=== PATIENT | male | born 1995 | race Caucasian/White ===

== ENCOUNTER 2017-01-15 21:46 | Emergency (ER) | payer BC ==
--- NOTE | 2017-01-15 22:49 | ERNOTE ---
Chest Pain/Cardiac HPI Date of Service: 01/15/17 Chief Complaint: Chest Pain Time Seen by Provider: 01/15/17 22:27 Source: patient Immunizations: IMMUNIZATION HX Immunizations Up to Date No History of Influenza Vaccine No Hx Pneumococcal Vaccination No Allergies/Adverse Reactions: Allergies Penicillins Allergy (Verified 01/15/17 21:58) Home Medications: HOME MEDICATIONS NK [No Home Medication] 01/15/17 [Last Taken Unknown] Narrative: This is a 21-year-old male who has a history of anxiety attacks who states that around 8:30 this evening he was riding with his fiance when he developed a tightness substernally. He then began to experience tingling into his neck on both sides and has sensation of tingling which progressed from his shoulders down to his toes. Shortly thereafter the tingling went away except around his lips, the fingertips and the toe tips. These are similar symptoms to what the patient has had in the past. He says he has been under a great deal of emotional stress, but he does not remember ruminating about any specific problems when this happened. He did not have any nausea he did not have any diaphoresis but he did complain of subjective shortness of breath, dyspnea. The patient does not have a history of high blood pressure, diabetes, high cholesterol. He does use tobacco products in the form of chewing tobacco. No family history of early cardiac disease. The patient says that his symptoms are completely resolved now. He does not have a family doctor. Timing: gone now Severity/Quality: moderate, pressure Location: substernal Chest Pain Radiation: no radiation Activities at Onset: emotional stress Modifying Factors - Improves: Present: nothing Modifying Factors - Worsens: Present: nothing Nitro Today/Relief: no nitro taken today Aspirin Treatment Today: no aspirin today Associated Symptoms: Present: shortness of breath, other - tingling to fingers and toes and perioral Prior Chest Pain/Cardiac Workup: Reports: no prior cardiac workup Prior Treatment: Denies: treated by physician, recently hospitalized, currently on antibiotics Review of Systems - Review of Systems Constitutional: Present: See HPI EYE: Present: no symptoms reported ENT: Present: no symptoms reported Respiratory: Present: shortness of breath. Absent: cough, orthopnea, wheezing, stridor Cardiology: Present: chest pain. Absent: palpitations, edema, claudication Gastrointestinal/Abdominal: Present: no symptoms reported. Absent: nausea, vomiting Genitourinary: Present: no symptoms reported Musculoskeletal: Present: no symptoms reported Skin: Present: no symptoms reported Neurological: Present: tingling, other - tingling to fingers toes and perioral Endocrine: Present: no symptoms reported Hematologic/Lymphatic: Present: no symptoms reported Psych: Present: anxiety All Other Systems: All systems neg except as marked - Patient's Past Medical History Patient History - Medical: Anxiety, GERD Patient History - Cardiac/Respiratory: Arrhythmias, Other Patient History - Cancer: No Hx of Cancer Patient History - Surgical Procedures: No surgical history Patient History - Other: None - Social History Living Situations: home Abuse History: No History of abuse Psych History: Hx of Anxiety Smoking Status: Never smoker Do you dip or chew tobacco: Yes Alcohol Use: rarely Drug Use: none - Immunizations Immunizations Up to Date: No Hx Pneumococcal Vaccination: No History of Influenza Vaccine: No Physical Exam - Physical Exam General Appearance: Present: wd/wn, alert, no apparent distress Head Exam: Present: normal inspection, no evidence of injury Eye Exam: Normal inspection: bilateral, PERRL: bilateral, EOMI: bilateral Ears, Nose, Throat: Present: normal ENT inspection, normal pharynx Neck: Present: normal inspection, nontender Respiratory: Present: no respiratory distress, no accessory muscle use, chest nontender, lungs clear Cardiovascular/Chest: Present: regular rate, rhythm, no murmur, normal peripheral pulses, other - right around 100 as the heart rate Peripheral Pulses: N=norm/S=strong/W=weak/B=bound/A=absent: Radial (R): Normal, Radial (L): Normal Gastrointestinal/Abdominal: Present: normal bowel sounds, nontender Back Exam: Present: normal inspection, no CVA tenderness Extremity Exam: Present: normal inspection, non-tender Neurological Exam: Present: alert, oriented, normal mood/affect, no motor/ sensory deficits Skin Exam: Present: normal color, warm/dry Lymphatic Exam: Present: no adenopathy ED Progress - Vital Signs Patient's Vital Signs:: I have reviewed the patient's vital signs. Vital Signs: Vital Signs 01/15/17 21:50 Temperature 37.2 C Pulse Rate 106 H Respiratory 18 Rate Blood Pressure 146/85 O2 Sat by Pulse 100 Oximetry - EKG EKG: other - sinus tach EKG read: Interp. by me EKG Comments: Patient has sinus tachycardia at 108. Normal axis. Normal intervals. No ST segment changes. Isolated T-wave flattening in aVL. This is a normal variant. Also present in lead V1 which is of normal variant. No other abnormalities - Progress/Reassessment Chief Complaint: Chest Pain Plan - Plan Plan: I discussed with the patient that his symptoms really do sound most like anxiety. The perioral paresthesias, tingling to fingers and toes, and the fact that he has had similar symptoms multiple times in the past leads me to think that this is anxiety. His EKG shows some tachycardia but there is no S1 every 3 T3 present. He has no swelling in his leg. He does not have any DVT risk factors. His chest discomfort has gone away. He only has residual tingling. I did tell the patient that the only way to be completely certain that this is not his heart is to do blood tests here in the ER and then repeat them after 3 hours. The patient does not want to do this. I think that this is acceptable as long as he is willing to accept the risks. He is stated that he is willing to accept a very tiny risk that there is something we might be missing by not doing these tests. His grandfather is present in the room. I discussed with him getting in touch with the family doctor. He is insured through his mother. He is going to go home and call her insurance and then find out what family physicians would cover him. He'll talk to her family physician about getting placed on low-dose antidepressants. If he develops recurrent chest pain, recurring shortness of breath, or any new worrisome symptoms he is aware he needs to return to the ER. He is verbalized understanding and agreement. I am aware that the patient has a recorded heart rate of 106. When I saw him his heart rate was right around 100. It was certainly not passed 105. He seems much calmer now than he did when he first came in. I suspect that this is slightly elevated due to the anxiety. He has had a great deal of stress from life events, and has had anxiety attacks multiple times. Departure - Departure Clinical Impression: Anxiety Disposition: Home self-care Condition: Stable Instructions: Panic Attacks, [id number] Additional Instructions: As we discussed I suspect her symptoms are from an anxiety attack. I offered to perform blood tests over 6 hours in the emergency department. You are willing to accept a very tiny risks that there is something which we are missing now which might be caught by these blood tests. His symptoms certainly sound most like anxiety. It is important that you call a family doctor and set up follow-up appointment. I want you to call the insurance company that her mom has. They should direct you to some local providers conceive is a family physician. When get in to see the family physician talk about low-dose antidepressants to help with you're underlying anxiety. If you develop recurrence of the chest pain, severe shortness of breath, pain when he take a deep breath, swelling in her legs, or any new concerning symptoms or want you to return to the ER immediately. Cardiac stop using tobacco.
[2017-01-16 03:22] VITALS: BP 130/82
== END 2017-01-15 22:52 | disposition home or self-care (01) ==
LOC: ER 21:46
DX: F41.9 Anxiety disorder, unspecified (principal); F17.220 Nicotine dependence, chewing tobacco, uncomplicated